=== PATIENT | female | born 1985 | race Caucasian/White ===

== ENCOUNTER 2022-06-27 09:49 | Outpatient (CLI) | payer BC, SELFPAY ==
[2022-06-27 15:26] LABS: Kit Draw Collected
== END 2022-06-27 09:50 | disposition home or self-care (01) ==
LOC: ANHGOSHLAB 09:51
PROVIDERS: PCP Family Medicine; Visit Provider Nurse Practitioner
DX: M25.50 Pain in unspecified joint (principal); E55.9 Vitamin D deficiency, unspecified; E78.5 Hyperlipidemia, unspecified; R53.83 Other fatigue
CPT/HCPCS: 36415

== ENCOUNTER 2023-05-04 13:27 | Outpatient (CLI) | payer BC, SELFPAY ==
[2023-05-04 17:01] LABS: Basophils Absolute Auto 0.1 K/mm3 (0.0-0.1); Basophils Percent Auto 0.5 % (0.2-1.2); Eosinophils Absolute Auto 0.2 K/mm3 (0-0.3); Eosinophils Percent Auto 1.1 % (0-4.4); Hematocrit 37.2 % (37.0-47.0); Hemoglobin 11.7 g/dL (12.0-15.0); Immature Granulocyte Absolute 0.04 K/mm3 (0.00-0.031); Immature Granulocyte Percent A 0.3 % (0-0.5); Lymphocytes Absolute Auto 3.35 K/mm3 (0.9-3.2); Lymphocytes Percent Auto 25.2 % (18.3-44.2); Mean Corpuscular HGB Conc 31.5 g/dl (32-36); Mean Corpuscular Hemoglobin 27.7 pg (26-34); Mean Corpuscular Volume 87.9 fl (80-100); Mean Platelet Volume 12.2 fl (7.4-10.4); Monocytes Absolute Auto 0.5 K/mm3 (0.1-0.6); Monocytes Percent Auto 3.5 % (2.6-8.5); Neutrophils Absolute Auto 9.2 K/mm3 (1.3-6.7); Neutrophils Percent Auto 69.4 % (45.5-73.1); Platelet Count Result 298 k/mm3 (150-375); Red Blood Count 4.23 M/mm3 (4.2-5.4); Red Cell Distribution Width 14.5 % (11.5-14.5); White Blood Count 13.3 K/mm3 (4.5-10.0)
[2023-05-04 18:18] LABS: Rheumatoid Factor < 12.0 IU/ML (<12)
[2023-05-04 18:21] LABS: Alanine Aminotransferase 20 U/L (6-35); Albumin Level 4.2 g/dL (3.5-5.1); Alkaline Phosphatase 86 U/L (38-126); Anion Gap 9 mmol/L (8-16); Aspartate Amino Transferase 23 U/L (14-36); Bilirubin,Total 0.4 mg/dL (0.2-1.3); Blood Urea Nitrogen 9 mg/dL (7-17); Calcium 9.2 mg/dL (8.4-10.2); Carbon Dioxide 26 mmol/L (22-30); Chloride 104 mmol/L (98-107); Estimated Glomerular Filt Rate > 60; Glucose 90 mg/dL (65-110); Sodium 139 mmol/L (137-145)
== END 2023-05-04 13:28 | disposition home or self-care (01) ==
LOC: ANHGOSHLAB 13:28
PROVIDERS: PCP Family Medicine; Visit Provider Nurse Practitioner Family
DX: Z00.00 Encounter for general adult medical examination without abnormal findings (principal); M25.50 Pain in unspecified joint; I10 Essential (primary) hypertension; E53.8 Deficiency of other specified B group vitamins; Z13.29 Encounter for screening for other suspected endocrine disorder; Z13.21 Encounter for screening for nutritional disorder
CPT/HCPCS: 36415; 80053; 82306; 82607; 84443; 85025; 86430

== ENCOUNTER 2023-05-04 13:40 | Outpatient (CLI) | payer BC, SELFPAY ==
--- NOTE | ~2023-05-04 | XR_ITS ---
EXAMINATION: XR lumbar spine 2-3V DATE: 05/04/2023 13:52 INDICATION: Low back pain TECHNIQUE: Anteroposterior and lateral views of the lumbar spine, and cone-down lateral view of the l umbosacral junction were obtained. COMPARISON: None. FINDINGS: No fracture, dislocation, or subluxation. The vertebral body heights, alignment, and interv ertebral disc spaces are normal. The paravertebral soft tissues are unremarkable. An IUD is noted. IMPRESSION: 1. No acute osseous abnormality. Reviewed, dictated and finalized at location B.
== END 2023-05-04 13:41 ==
LOC: GOSHIMG 13:41
PROVIDERS: PCP Nurse Practitioner Family; Visit Provider Nurse Practitioner Family
DX: M79.662 Pain in left lower leg (principal); M54.50 Low back pain, unspecified
CPT/HCPCS: 72100

== ENCOUNTER 2023-05-23 14:54 | Outpatient (CLI) | payer BC, SELFPAY ==
--- NOTE | ~2023-05-23 | XR_ITS ---
EXAMINATION: XR abdomen/kub 1V INDICATION: Constipation, abdominal pain TECHNIQUE: Supine views of the abdomen were obtained on 2 radiographs. COMPARISON: None FINDINGS: The bowel gas pattern is normal. There are no dilated loops of bowel. The visualized lung b ases are clear. An IUD is noted. IMPRESSION: 1. No radiographic correlate for the patient's symptoms. Reviewed, dictated and finalized at location F.
== END 2023-05-23 14:55 ==
PROVIDERS: PCP Nurse Practitioner Family; Visit Provider Nurse Practitioner Family
DX: K59.00 Constipation, unspecified (principal); R10.9 Unspecified abdominal pain
CPT/HCPCS: 74018

== ENCOUNTER 2024-03-06 09:40 | Outpatient (CLI) | payer BC, SELFPAY ==
[2024-03-06 19:48] LABS: Hemoglobin 13.2 g/dL (12.0-15.0); Mean Corpuscular HGB Conc 31.4 g/dl (32-36); Mean Corpuscular Hemoglobin 28.4 pg (26-34); Mean Corpuscular Volume 90.5 fl (80-100); Mean Platelet Volume 11.9 fl (7.4-10.4); Platelet Count Result 337 k/mm3 (150-375); Red Blood Count 4.64 M/mm3 (4.2-5.4); Red Cell Distribution Width 14.6 % (11.5-14.5); White Blood Count 10.3 K/mm3 (4.5-10.0)
[2024-03-06 19:51] LABS: Alanine Aminotransferase 20 U/L (6-35); Albumin Level 4.5 g/dL (3.5-5.1); Alkaline Phosphatase 82 U/L (38-126); Anion Gap 2 mmol/L (4-12); Aspartate Amino Transferase 29 U/L (14-36); Bilirubin,Total 0.6 mg/dL (0.2-1.3); Blood Urea Nitrogen 15 mg/dL (7-17); Calcium 9.1 mg/dL (8.4-10.2); Carbon Dioxide 27 mmol/L (22-30); Chloride 100 mmol/L (98-107); Cholesterol 234 mg/dL (0-200); Estimated Glomerular Filt Rate > 60; Glucose 87 mg/dL (65-110); HDL Direct 45 mg/dL; Potassium 4.5 mmol/L (3.4-5.0); Sodium 129 mmol/L (137-145); Triglycerides 87 mg/dL (<150)
[2024-03-06 20:02] LABS: LDL Cholesterol Direct 172 mg/dL
[2024-03-06 21:22] LABS: Hemoglobin A1C 5.8 % (<5.7)
[2024-03-11 14:54] LABS: Vitamin D 1,25 (OH)2 Total 28 pg/mL (18-72); Vitamin D2 1,25 (OH)2 <8 pg/mL; Vitamin D3 1,25 (OH)2 28 pg/mL
== END 2024-03-06 09:41 | disposition home or self-care (01) ==
LOC: ANHGOSHLAB 09:41
PROVIDERS: PCP Nurse Practitioner Family; Visit Provider Nurse Practitioner Family
DX: E78.5 Hyperlipidemia, unspecified (principal); E53.8 Deficiency of other specified B group vitamins; F41.8 Other specified anxiety disorders; R53.83 Other fatigue; E55.9 Vitamin D deficiency, unspecified; Z00.00 Encounter for general adult medical examination without abnormal findings; D72.829 Elevated white blood cell count, unspecified
CPT/HCPCS: 36415; 80053; 80061; 82607; 82652; 83036; 84443; 85027

== ENCOUNTER 2024-05-23 08:30 | Outpatient (CLI) | payer BC, SELFPAY ==
[2024-05-23 17:02] LABS: Alanine Aminotransferase 24 U/L (6-35); Alkaline Phosphatase 92 U/L (38-126); Anion Gap 6 mmol/L (4-12); Aspartate Amino Transferase 52 U/L (14-36); Bilirubin,Total 0.4 mg/dL (0.2-1.3); Blood Urea Nitrogen 10 mg/dL (7-17); Calcium 8.9 mg/dL (8.4-10.2); Carbon Dioxide 29 mmol/L (22-30); Chloride 102 mmol/L (98-107); Cholesterol 143 mg/dL (0-200); Estimated Glomerular Filt Rate > 60; Glucose 82 mg/dL (65-110); HDL Direct 41 mg/dL; Potassium 4.2 mmol/L (3.4-5.0); Sodium 137 mmol/L (137-145); Triglycerides 82 mg/dL (<150)
[2024-05-23 17:23] LABS: LDL Cholesterol Direct 77 mg/dL
[2024-05-23 18:34] LABS: Folic Acid 6.4 ng/mL (2.76->20)
== END 2024-05-23 08:31 | disposition home or self-care (01) ==
LOC: ANHGOSHLAB 08:31
PROVIDERS: PCP Family Medicine; Visit Provider Nurse Practitioner Family
DX: R53.83 Other fatigue (principal); E78.5 Hyperlipidemia, unspecified
CPT/HCPCS: 36415; 80053; 80061; 82607; 82746

== ENCOUNTER 2024-06-26 10:44 | Outpatient (CLI) | payer BC, SELFPAY ==
[2024-06-26 14:34] LABS: Influenza A QL RT-PCR Negative (Negative); Influenza B QL RT-PCR Negative (Negative); RSV RNA, RT-PCR Negative (Negative); SARS-CoV-2 RNA PCR Positive (Negative)
== END 2024-06-26 10:45 | disposition home or self-care (01) ==
LOC: ANHGOSHLAB 10:45
PROVIDERS: PCP Family Medicine; Visit Provider Family Medicine
DX: J06.9 Acute upper respiratory infection, unspecified (principal); J02.9 Acute pharyngitis, unspecified; Z20.822 Contact with and (suspected) exposure to COVID-19
CPT/HCPCS: 87637

== ENCOUNTER 2025-01-15 09:06 | Outpatient (CLI) | payer BC, SELFPAY ==
--- NOTE | 2025-01-29 14:21 | P.SLEEP_ITS ---
Sleep Study - Home Unattended Date of Study: 01/15/25 Ordering Provider: Terri Quiros NP Interpreting Provider: Abigail Han MD Home Sleep Study Type: Watch PAT Height: 1.55 m Weight: 106.594 kg Body Mass Index: 44.4 Neck Circumference (inches): 17.5 [place]: 16 Reason for Sleep Study Hypersomnolence Sleep History Brittany Landry is a 39-year-old woman with difficulty falling asleep and staying asleep. She does not say that she snores at night, however she chokes and gasps when she sleeps on her back, has morning headaches, and a sore throat in the am. She has nocturnal heartburn. She does not wake to urinate. She is tired in the day, does not wake up feeling refreshed. She has drowsy driving. She has the urge to move her legs at night, this is worse when she tries to rest, and improves with activities. She clenches her jaws and grinds her teeth at night. She has a restless feeling in her legs in the evenings. She does not have muscle weakness with strong emotion, does not have vivid dreams on falling asleep or upon waking. She quiros snot dream during daytime naps. Her insomnia severity score is 20, elevated, consistent with clinical insomnia. She is very dissatisfied with her sleep pattern. does not function well in the day due to poor night time sleep, and she worries significantly about her sleep. Normal bedtime is 10:00 p.m., falling asleep within an hour, spending 8 hours in bed, only 5 and a half hours asleep. She keeps a similar schedule on days off, bedtime is 11:00 p.m., taking 2 hours to fall asleep, spending 10 hours in bed, 7 hours asleep. She does not feel rested in the day time. Habits: tobacco: none Caffeine: 1-2 cups daily Alcohol: no Recreational substances: no PMFSH Past Medical History Medical History Anxiety Mildly obese Muscle spasm Prediabetes Vitamin B12 deficiency Seasonal allergic rhinitis Lumbar pain Muscle tension pain Hyperlipidemia Vitamin D deficiency Depression with anxiety Surgical History Surgical History History of 2006 and 2010 Family History Family History Mother Family history of glaucoma Hypertension Family history of type 2 diabetes mellitus Father Hypertension Family history of type 2 diabetes mellitus Sibling Bile duct cancer Pancreatic cancer Social History Social History Social History: Caffeine- coffee daily Smoking status: Never smoker Second hand tobacco smoke exposure: No Alcohol intake: never Substance use: never Substance use type: does not use Lack of Transportation: No Lack of Food: Never True Current Housing: I Have Housing Concerned About Future Housing: No Difficulty Paying Gas/Electric Bills: No Difficulty Paying for Meds: No Currently Unemployed: No Education: High School Diploma/GED Difficulty w/ Childcare or Family Care: No Living arrangements: with family Additional living arrangements comments: and Children Occupation/Education: occupation 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 Gender identity (if verbalized by the patient): Female Sexual Orientation (if Verbalized by the Patient): Straight or Heterosexual Agree to blood products: Yes Medications Home Medications ?Medication ?Instructions ?Recorded ?Confirmed ?Type escitalopram oxalate 10 mg tablet 10 mg PO DAILY #90 tabs 04/17/24 11/24/24 Rx loratadine 10 mg tablet (Claritin) 10 mg PO DAILY PRN 04/17/24 11/24/24 History cyanocobalamin (vitamin B-12) 1,000 mcg sublingual DAILY 06/26/24 11/24/24 History 1,000 mcg sublingual lozenge simvastatin 10 mg tablet 10 mg PO DAILY #90 tabs 10/16/24 11/24/24 Rx coQ10 (ubiquinol) 100 mg capsule 400 mg PO DAILY 10/30/24 11/24/24 History (Qunol Javi CoQ10) Sleep Procedure The sleep study was completed using SungevityT a technically adequate device with seven channels: peripheral arterial tone, actigraphy, body position, snore, respiratory movement, pulse oximetry, sleep staging, and heart rate. Prior to using the device, the patient received verbal and written instructions for its application and was provided with the [employer] phone number for additional telephonic instruction with 24-hour availability of qualified personnel to answer questions. Sleep Architecture The total recording time is 7 hours 44 minutes. The total sleep time is 6 hours 9 minutes. Sleep latency is 21 minutes. REM latency is 226 minutes. The patient had 30 episodes of waking. Sleep architecture shows 21.4% deep sleep, 58 point% light sleep, and 20.2 % stage REM. The patient spent 56 minutes, 15.2%of total sleep time in the supine position. Respiratory Analysis The overall AHI is 46.3 using a 3% criteria. The apnea-hypopnea index using the 4% criteria is 27.8, moderately severe. The central AHI is 1.5. The REM AHI was 77.3. The supine apnea-hypopnea index is 76.9, nonsupine apnea-hypopnea index 40.8. There was no evidence of Olvin-Hung respirations. Oximetry Data The oxygen desaturation index is 27.8. The mean saturation is 94%, the lowest saturation is 76% %, and the patient spent 13.8 minutes, 3.7% of the sleep time, below 88%. Snoring Profile Snoring was present, average intensity 54 dB. The patient snored above 45 dB for 309.6 minutes, 83.9% of the sleep time. Cardiac Profile The average pulse is 92 beats per minute, the lowest pulse is 62 beats per minute, and the highest pulse is 114 beats per minute. Cardiac rhythm analysis in sleep does not detect atrial fibrillation. Assessment and Plan Assessment and Plan (1) Obstructive sleep apnea: Code(s): G47.33 - Obstructive sleep apnea (adult) (pediatric) Status: Acute Assessment and Plan: This home sleep test using WatchPat on 01/15/2025 shows overall moderate obstructive sleep apnea, the apnea-hypopnea index using a 4% criteria is 25.4, with loud snoring for most of the night and desaturation to 76% with 13.8 minutes spent below 88%. She has a positional component, the supine apnea- hypopnea index is 76.9 nonsupine is 40.8. She spent most of the night in the left lateral position. This patient is recommended to have a full night CPAP titration in the sleep lab with a sleep aid available, if needed, to get to sleep and stay asleep. Consider Ambien 5-10 mg or Lunesta 2-3 mg. She should not nap on the day of the study. BMI is 44.4. Weight management is advised. Clinical data suggests that weight loss of 10% can reduce the severity of respiratory events and snoring and improve AHI by as much as 25%. (2) Restless legs syndrome: Code(s): G25.81 - Restless legs syndrome Status: Acute Assessment and Plan: This is strongly suggested by her history. Restless legs syndrome is a clinical condition and is not diagnosed based on data from this home sleep test. Ferritin level is indicated to exclude iron deficiency anemia as a contributing factor. Ferritin should be 75 ng/mL or greater. If ferritin is below this, iron supplementation should be given to achieve ferritin of 75 ng/mL. There are nonpharmacologic methods to treat limb movements including daily exercise, stretching calf muscles before bed, avoiding excessive amounts of caffeine and alcohol, vitamin B supplementation, magnesium lotion massaged into legs before bed, and use of a weighted blanket. Pharmacologic therapy is very effective for restless legs syndrome and limb movements during sleep and may include [id number] voltage-gated calcium channel ligands such as gabapentin which is preferable to dopaminergic agents which can have augmentation. Data The data obtained during this sleep study is adequate for interpretation. Certification This sleep study has been reviewed by a board certified sleep medicine physician.
[2025-02-02 19:52] VITALS: BMI 44.4
== END 2025-01-16 09:45 | disposition home or self-care (01) ==
LOC: ANHCSM 09:10
PROVIDERS: PCP Family Medicine; Visit Provider Nurse Practitioner Family
DX: G47.10 Hypersomnia, unspecified (principal); R53.83 Other fatigue; G47.33 Obstructive sleep apnea (adult) (pediatric); G25.81 Restless legs syndrome
CPT/HCPCS: 95800

== ENCOUNTER 2025-03-05 08:49 | Outpatient (CLI) | payer BC, SELFPAY ==
--- OUTSIDE RECORDS SUMMARY | 2025-03-05 08:54 | XMS_ITS | Patient Health Record ---
Author Organization [facility] Address [address] [place], [place] [id number] Care Team Providers Care Non Destructive Testing Inspector Name Role Phone MELI ART Unavailable [phone] Elbert Melara Unavailable Unavaila ble Allergies No Known Allergies Reason For Referral No Information Medications Medication SIG (Take, Route, Fr equency, Duration) Notes Start Date End Date Status Escitalopram Oxalate Active Rosuvastatin Calcium Active Vital Signs Height-cm 154.94 cm 03/05/2025 Weight-kg 117.48 kg 03/05/2025 Height 61.00 in 03/05/2025 Weight 259 lbs 03/05/2025 BMI 48.93 kg/m2 03/05/2025 Encounters Encounter Location Date Provider Diagnosis [facility] [place] [address] [place], [place] [id number] 03/05/2025 ART GARRISON Assessments Encounter Date Diagnosis (ICD Code) Assessment Notes Treatment Notes Treatment Clinical Notes Section Notes 03/05/2025 Other Following skin prep, a total of 3 ccs of a 1-1-1 mix of 0.5% marcaine plain, Kenalog, and dexamethasone sodium phosphate was injected into the patients bilateral plantar fascia. Orthotic recommendation: Custom orthotics were recommended. The patient was given heel stretching exercises. A night splint was fitted and dispensed. The patient was instructed on its use. Plan Of Treatment Next Appt Details Provider Name:ART SALINAS, 03/19/2025 02:40:00 PM, [address], [place], [place], [id number], Insurance Providers Payer Name Payer Address Payer Phone Subscriber Number Group Number Insured Name Patient Relationship to Insured Coverage Start Date Coverage End Date [facility] ([facility]) ATTN CLAIMS [address] [place] [address] [id number] DAIANA JACOBS Spouse - patient is the spouse of the insured Medical (General) History Medical History History ICD Code Leg/Feet cramps Surgical History Surgery Date(Month/Year) section
--- OUTSIDE RECORDS SUMMARY | 2025-03-05 08:54 | XMS_ITS | Clinical Summary ---
Author Organization [facility] Address [address] [place] [id number] Care Team Providers Care Cafe Helper Name Role Phone Elbert Villanueva MD Primary Care Provider Allergies No known active allergies Medications buPROPion XL (WELLBUTRIN XL) 150 MG 24 hr tablet Take 1 tablet (150 mg total) by mouth daily. Active Immunizations Immunization Administration Dates Next Due PFIZER COVID-19 (ORIGINAL FO RMULATION, PURPLE CAP) mRNA, LNP-S, PF, 30 MCG/0.3 ML DOSE 09/15/2020,08/25/2020 Family History Medical History Relation Comments Breast Cancer Maternal Grandmother Breast Cancer Paternal Grandmother Relation Status Comments Maternal Grandmother Paternal Grandmother Social History Tobacco Use Types Packs/Day Years Used Date Smoking Tobacco: Never Smokeless Tobacco: Never Tobacco Cessation:Counseling Given: Not Answered Alcohol Use Standard Drinks/Week Comments Never 0 (1 standard drink = 0.6 oz pur e alcohol) Comments Unknown Sex and Gender Information Value Date Recorded Sex Assigned at Not on file Legal Sex Female 8:16 PM EDGE DRUMMER Gender Identity Not on file Sexual Orientation Not on file Last Filed Vital Signs Vital Sign Reading Time Taken Comments Blood Pressure 143/99 11/01/2022 7:55 PM CDT Pulse 89 11/01/2022 7:55 PM CDT Temperature 36.7 C (98 F) 11/01/2022 7:55 PM CDT Respiratory Rate 18 11/01/2022 7:55 PM CDT Oxygen Saturation 100% 11/01/2022 7:55 PM CDT Inhaled Oxygen Concentration - - Weight 104.3 kg (230 lb) 11/01/2022 6:52 PM CDT Height 154.9 cm (5' 1) 11/01/2022 6:52 PM CDT Body Mass Index 43.46 11/01/2022 6:52 PM CDT Plan of Treatment Health Maintenance Due Date Last Done Comments Cervical Cancer Screening Pa p Smear (Age 30 to 64) Every 3 Years 1983 Annual Physical 1986 Hepatitis C 2001 DTaP, Tdap and Td Vaccines ( 1 - Tdap) 2002 Hepatitis B Vaccines (1 of 3 - 19+ 3-dose series) 2002 HPV Vaccines (1 - 3-dose SCD M series) 2010 Cervical Cancer Screening Pa p with HPV Testing (Age 30 to 64) Every 5 Years 2013 Cervical Cancer Screening wi th HPV 2013 COVID-19 Vaccine (2023-2 5 season) 2024 09/15/2020, 08/25/2020 Mammogram Screening 09/29/2026 09/29/2024, 09/17/2023 Meningococcal B Vaccine Aged Out No l onger eligible based on patient's age to complete this topic Meningococcal Vaccine Aged Out No iávn chikis eligible based on patient's age to complete this topic Pneumococcal Vaccine: Pediatrics (0 to 5 Years) and At-Risk Patients (6 to 49 Years) Aged Out No longer eligible b ased on patient's age to complete this topic RSV Immunizations Under 20 Months Aged Out No longer eligible b ased on patient's age to complete this topic Procedures Procedure Name Priority Date/Time Associated Diagnosis Comments MG SCREENING W YEIMI CROW DIGI Routine 09/29/2024 11:44 AM EDGE DRUMMER Visit for screening mammogram from Last 3 Months or Most Recently Relevant to Health Maintenance Results * MG SCREENING W YEIMI CROW DIGI (09/29/2024 11:44 AM EDGE DRUMMER) Anatomical Region Laterality Modality Breast Bilateral Mammography 09/29/2024 4:12 PM EDGE DRUMMER Impressions 09/29/2024 4:15 PM EDGE DRUMMER ===== IMPRESSION: ===== 1. Stable mammographic appearance with no new findings to suggest malignancy in either breast. Assessment: ACR BI-RADS 1 - NEGATIVE Recommendation: 1:Routine Screening Bilateral Comments: Ordered By: ELBERT VILLANUEVA Interpreted By: Melina Love, 09/29/2024 4:12 PM Narrative 09/29/2024 4:15 PM EDGE DRUMMER [facility] [address] [place] [address] EXAMINATION: Digital bilateral screening mammogram with 3-D tomosynthesis EXAM DATE/TIME: 09/29/2024 10:53 AM REASON FOR EXAM: Screening Breast carcinoma in maternal grandmother at age 60 and paternal grandmother at age 80 COMPARISON: 09/17/2023 Technique: Digital screening mammography of both breasts was performed in addition to 3-D Tomosynthesis technique. This study was read with the assistance of a computer-aided detection system. Tissue density: The breasts are almost entirely fatty. Findings: There is no new focal asymmetry, dominant mass lesion, area of skin thickening, or cluster of suspicious appearing calcifications in either breast to suggest malignancy. Elbert Villanueva MD MAMMO Final Result from Last 3 Months or Most Recently Relevant to Health Maintenance Insurance [facility] Care Teams Cafe Helper Relationship Specialty Start Date End Date Elbert Villanueva MD [id number] [facility] [address] [place] [address] PCP - General FAMILY PRACTICE 11/01/22
[2025-03-05 13:02] LABS: Hematocrit 37.5 % (37.0-47.0); Hemoglobin 11.6 g/dL (12.0-15.0); Immature Granulocyte Percent A 0.5 % (0-0.5); Lymphocytes Absolute Auto 2.83 K/mm3 (0.9-3.2); Mean Corpuscular HGB Conc 30.9 g/dl (32-36); Mean Corpuscular Hemoglobin 27.4 pg (26-34); Mean Corpuscular Volume 88.4 fl (80-100); Nucleated Red Blood Cells Absolute Auto 0.000 K/mm3 (0.0-0.012); Nucleated Red Blood Cells Perc 0.0 % (0.0-0.2); Platelet Count Result 212 k/mm3 (150-375); Red Blood Count 4.24 M/mm3 (4.2-5.4); White Blood Count 10.4 K/mm3 (4.5-10.0)
[2025-03-05 13:15] LABS: Alanine Aminotransferase 23 U/L (6-35); Albumin Level 4.0 g/dL (3.5-5.1); Alkaline Phosphatase 82 U/L (38-126); Anion Gap 9 mmol/L (4-12); Aspartate Amino Transferase 62 U/L (14-36); Bilirubin,Total 0.2 mg/dL (0.2-1.3); Blood Urea Nitrogen 11 mg/dL (7-17); Calcium 8.7 mg/dL (8.4-10.2); Carbon Dioxide 24 mmol/L (22-30); Chloride 104 mmol/L (98-107); Cholesterol 168 mg/dL (0-200); Estimated Glomerular Filt Rate > 60; Glucose 86 mg/dL (65-110); HDL Direct 32 mg/dL; Potassium 4.1 mmol/L (3.4-5.0); Sodium 137 mmol/L (137-145); Total Protein 8.2 g/dL (6.3-8.2); Triglycerides 88 mg/dL (<150)
[2025-03-05 13:30] LABS: Free T4 Free Thyroxine 0.99 ng/dL (0.78-2.19)
[2025-03-05 13:34] LABS: Hemoglobin A1C 6.1 % (<5.7)
[2025-03-05 13:50] LABS: Thyroid Stimulating Hormone 2.370 uIU/mL (0.465-4.680)
[2025-03-05 14:09] LABS: Vitamin B12 265.0 pg/mL (239-931)
== END 2025-03-05 08:50 | disposition home or self-care (01) ==
LOC: ANHGOSHLAB 08:50
PROVIDERS: PCP Family Medicine; Visit Provider Nurse Practitioner Family
DX: E78.5 Hyperlipidemia, unspecified (principal); E55.9 Vitamin D deficiency, unspecified; R73.03 Prediabetes; E66.01 Morbid (severe) obesity due to excess calories; E53.8 Deficiency of other specified B group vitamins; G25.81 Restless legs syndrome
CPT/HCPCS: 36415; 80053; 80061; 82306; 82607; 83036; 84439; 84443; 85025

== ENCOUNTER 2025-03-18 07:43 | Outpatient (CLI) | payer BC, SELFPAY ==
--- OUTSIDE RECORDS SUMMARY | 2025-03-18 07:46 | XMS_ITS | Patient Health Record ---
Author Organization [facility] Address [address] [place], [place] [id number] Care Team Providers Care Nursing Home Admissions Director Name Role Phone MELI ART Unavailable [phone] Elbert Melara Unavailable Unavaila ble Allergies No [...] Location Date Provider Diagnosis [facility] [place] [address] [place], [place] [id number] 03/05/2025 ART GARRISON Assessments Encounter Date Diagnosis [...] 02:40:00 PM, [address], [place], [place], [id number], Insurance Providers Payer Name Payer Address Payer Phone Subscriber Number Group Number Insured Name Patient Relationship to Insured Coverage Start Date Coverage End Date [facility] ([facility]) ATTN CLAIMS [address] [place] [address] [id number] DAIANA JACOBS Spouse - patient is the spouse of the insured Medical (General) History Medical History History ICD Code Leg/Feet cramps Surgical History Surgery Date(Month/Year) section
--- OUTSIDE RECORDS SUMMARY | 2025-03-18 07:46 | XMS_ITS ---
Author Organization [facility] Address [address] [place], [place] [id number] Care Team Providers Care Floor Coverings Salesperson Name Role Phone ART BRYANT Unavailable [phone] Marella, Srimannarayana Unavailable Unavaila ble Allergies No Known Allergies REASON FOR VISIT Heel spur Medications Medication SIG (Take, Route, Fr equency, Duration) Notes Start Date End Date Status Escitalopram Oxalate Active Rosuvastatin Calcium Active Vital Signs Height 61.00 in 03/05/2025 Weight 259 lbs 03/05/2025 BMI 48.93 kg/m2 03/05/2025 Height-cm 154.94 cm 03/05/2025 Weight-kg 117.48 kg 03/05/2025 Encounters Encounter Location Date Provider Diagnosis [facility] [place] [address] [place], [place] [id number] 03/05/2025 ART BRYANT Assessments Encounter Date Diagnosis (ICD Code) Assessment [...] instructed on its use. Plan Of Treatment Treatment Notes Assessment Notes Other Following skin prep, a total of 3 ccs of a 1-1-1 mix of 0.5% marcaine plain, Kenalog, and dexamethasone sodium phosphate was injected into the patients bilateral plantar fascia. Orthotic recommendation: Custom orthotics were recommended. The patient was given heel stretching exercises. A night splint was fitted and dispensed. The patient was instructed on its use. Next Appt Details Provider Name:ART Olivier MARLEY SALINAS, 03/19/2025 02:40:00 PM, [address], [facility], [place], [place], [phone], Progress Notes * JAN JACOBSDOB:1985 (39 yo F)Acc No.[id number]:03/05/2025 Progress Notes Patient: JAN COPELAND Provider: Marii Bryant DPM :1985 A ge:39 Y S ex:Female Date:03/05/2025 Address:[address] [place] [address] Subjective: * Chief Complaints: * 1 . Heel spur. * HPI: H PI: New Complaint P finn was last seen in our practice over three years ago. Patient complains of an issue to bilateral heels. She states she has pain in the bottom of both heels. Duration of problem is 3 years. She states she has had two rounds of injections and finished physical therapy. She states they helped some, but the pain never went away. MA: sea.? * Medical History: L eg/Feet cramps. * Surgical History: c esarean section . * Family History: F ather: PRN - Father: :: Diabetes,,known absent , :: Kidney disease,,known absent , :: Hypertension,,known absent . H usband: SPS - : :: Diabetes,,known absent . * Social History: M igrated Social History: M igrated Social History: History of tobacco use : , Smoking Status : Never used tobacco. * Medications: T aking Rosuvastatin Calcium , Taking Escitalopram Oxalate , Medication List reviewed and reconciled with the patient * Allergies: N .K.D.A. Objective: * Vitals: S hoe Size: 7.5, Wt:259lbs, Wt-k.48 kg, Ht: 61.00 in, Ht-cm: 154.94 cm, BMI:48.93Index, Body Surface Area: 2.25. * Examination: C onstitutional: Constitutional T he patient is awake, alert, well developed, well groomed and well nourished. . D ermatologic: Skin findings: S kin is warm, dry, supple with no breaks in the skin. . Nail pathology: N ails 1-5 bilateral are normal in appearance and thickness. No discoloration. . Ulcer: T here is no evidence of ulceration noted at this time . Hyperkeratotic Skin Lesion T here is no evidence of hyperkeratosis . M usculoskeletal: Muscle Strength M uscle strength is 5/5 in regards to dorsiflexion, plantarflexion, inversion, and eversion in bilateral lower extremities. . Foot Structure T he foot structure is noted to be normal bilaterally . Pain on palpation m edial band of the dilshad plantar fascia near its attachment to the calcaneus . Gait T here is normal gait noted . N eurologic: Muscle power: 5 /5 bilaterally . Gross sensation G ross sensation is intact to light touch. . V ascular: Dorsalis pedis pulse: 2 /4 bilateral . Posterior tibial pulse: 2 /4 bilaterally . Capillary refill: l ess than 3 seconds bilaterally . Temperature gradient: w ithin normal limits . ? X -Ray: LEFT FOOT X -rays reveal no sign of fracture, dislocation or osseous lesions. There is a plantar spur noted on the calcaneous. . RIGHT FOOT X -rays reveal no sign of fracture, dislocation or osseous lesions. There is a plantar spur noted on the calcaneous. . Assessment: Plan: * Treatment: * Billing Information: * Visit Code: * Procedure Codes: * Electronic signature of ART BRYANT DPM on 03/18/2025 at 07:45 AM CDT Sign off status: Pending * Provider: Marii Bryant DPM Date: 03/05/2025 Generated for Ruy yang/Corie/Pilar on: 03/18/2025 07:45 AM CDT History and Physical Notes * HPI (History of Present Illness) Category Sub-Category Detail Notes Category Not es HPI New Complaint Patient was last seen in our practice over three years ago. Patient complains of an issue to bilateral heels. She states she has pain in the bottom of both heels. Duration of problem is 3 years. She states she has had two rounds of injections and finished physical therapy. She states they helped some, but the pain never went away. MA: nadiya Examination Category Sub-Category Detail Notes Category Not es X-Ray LEFT FOOT X-rays reveal no sign of fracture, dislocation or osseous lesions. There is a plantar spur noted on the calcaneous. RIGHT FOOT X-rays reveal no sig n of fracture, dislocation or osseous lesions. There is a plantar spur noted on the calcaneous. Constitutional Constitutional The patient is a wake, alert, well developed, well groomed and well nourished. Dermatologic Skin findings: Skin is warm, dr y, supple with no breaks in the skin. Nail pathology: Nails 1-5 bilateral are normal in appearance and thickness. No discoloration. Ulcer: There is no evidence of ulceration noted at this time Hyperkeratotic Skin Lesion There is no e vidence of hyperkeratosis Musculoskeletal Muscle Strength Muscle strength is 5/5 in regards to dorsiflexion, plantarflexion, inversion, and eversion in bilateral lower extremities. Pain on palpation medial band of the b il plantar fascia near its attachment to the calcaneus Foot Structure The foot structure i s noted to be normal bilaterally Gait There is normal gait noted Neurologic Muscle power: 5/5 bilaterally Gross sensation Gross sensation is i ntact to light touch. Vascular Dorsalis pedis pulse: 2/4 bilateral Posterior tibial pulse: 2/4 bilaterally Capillary refill: less than 3 seconds bilaterally Temperature gradient: within normal limi ts
--- NOTE | 2025-04-10 21:46 | P.SLEEP_ITS ---
Sleep Study Date of Study: 03/18/25 Ordering Provider: Terri Quiros NP Interpreting Physician: Abigail Han MD Sleep Study Type: CPAP Titration Height: 1.55 m Weight: 115.666 kg Body Mass Index: 48.2 Neck Circumference (inches): 17.5 [place]: 16 Reason for Sleep Study Hypersomnolence * 01/15/2025 home sleep test showing moderate obstructive sleep apnea, the apnea- hypopnea index 24.5 with loud snoring and desaturation to 76%, 13.8 minute spent below 88%. She returns at this time for a full night CPAP titration. She had increased events in the supine position, the supine index is 76.9. Sleep History The history is taken from her 01/15/2025 sleep questionnaire. Brittany Landry is a 40-year-old woman with difficulty falling asleep and staying asleep. She does not say that she snores at night, however she chokes and gasps when she sleeps on her back, has morning headaches, and a sore throat in the am. She has nocturnal heartburn. She does not wake to urinate. She is tired in the day, does not wake up feeling refreshed. She has drowsy driving. She has the urge to move her legs at night, this is worse when she tries to rest, and improves with activities. She clenches her jaws and grinds her teeth at night. She has a r estless feeling in her legs in the evenings. She does not have muscle weakness with strong emotion, does not have vivid dreams on falling asleep or upon waking. She quiros snot dream during daytime naps. Her insomnia severity score is 20, elevated, consistent with clinical insomnia. She is very dissatisfied with her sleep pattern. does not function well in the day due to poor night time sleep, and she worries significantly about her sleep. Normal bedtime is 10:00 p.m., falling asleep within an hour, spending 8 hours in bed, only 5 and a half hours asleep. She keeps a similar schedule on days off, bedtime is 11:00 p.m., taking 2 hours to fall asleep, spending 10 hours in bed, 7 hours asleep. She does not feel rested in the day time. Habits: tobacco: none Caffeine: 1-2 cups daily Alcohol: no Recreational substances: no PMFSH Past Medical History Medical History Obstructive sleep apnea Anxiety Mildly obese Muscle spasm Prediabetes Vitamin B12 deficiency Seasonal allergic rhinitis Lumbar pain Muscle tension pain Hyperlipidemia Vitamin D deficiency Depression with anxiety Surgical History Surgical History History of 2006 and 2010 Family History Family History Mother Family history of glaucoma Hypertension Family history of type 2 diabetes mellitus Father Hypertension Family history of type 2 diabetes mellitus Sibling Bile duct cancer Pancreatic cancer Social History Social History Social History: Caffeine- coffee daily Smoking status: Never smoker Second hand tobacco smoke exposure: No Alcohol intake: never Substance use: never Substance use type: does not use Lack of Transportation: No Lack of Food: Never True Current Housing: I Have Housing Concerned About Future Housing: No Difficulty Paying Gas/Electric Bills: No Difficulty Paying for Meds: No Currently Unemployed: No Education: High School Diploma/GED Difficulty w/ Childcare or Family Care: No Living arrangements: with family Additional living arrangements comments: and Children Occupation/Education: occupation 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 Gender identity (if verbalized by the patient): Female Sexual Orientation (if Verbalized by the Patient): Straight or Heterosexual Agree to blood products: Yes Medications Home Medications ?Medication ?Instructions ?Recorded ?Confirmed ?Type escitalopram oxalate 10 mg tablet 10 mg PO DAILY #90 t abs 04/17/24 11/24/24 Rx loratadine 10 mg tablet (Claritin) 10 mg PO DAILY PRN 04/17/24 11/24/24 History cyanocobalamin (vitamin B-12) 1,000 mcg sublingual TOMA LY 06/26/24 11/24/24 History 1,000 mcg sublingual lozenge simvastatin 10 mg tablet 10 mg PO DAILY #90 tabs 02/0411/24/24 Rx coQ10 (ubiquinol) 100 mg capsule 400 mg PO DAILY 10/3011/24/24 History (Qunol Javi CoQ10) semaglutide (weight loss) 0.25 0.25 mg (0.5 mL) subcut WEEKLY #2 02/09/25 Rx mg/0.5 mL subcutaneous pen mL injector (Alicia) zolpidem 10 mg tablet 10 mg PO QHS PRN sleep #1 ta blet 02/09/25 Rx cholecalciferol (vitamin D3) 50 50 mcg PO DAILY #90 ca ps 03/05/25 Rx mcg (2,000 unit) capsule Sleep Procedure A full CPAP polysomnogram using the [employer] multi-channel system recorded the standard physiologic parameters including EEG, EOG, submentalis EMG, anterior tibialis EMG, EKG, body position, nasal and oral airflow using nasal pressure sensor and thermistor. Respiratory parameters of chest and abdominal movements were recorded with Respiratory Inductance Plethysmography belts. Oxygen saturation was recorded by pulse oximetry. Video monitoring was also performed. Sleep stages, periodic limb movements, and EEG arousals were scored in 30 second epochs according to the criteria of the AASM Scoring Manual. The Apnea-Hypopnea Index was calculated using CMS guidelines for definition of hypopnea while scoring respiratory events. She self administered zolpidem 10 mg at the start of the study. The patient was started on CPAP using a small ResMed AirTouch F20 FFM and heated humidity, Initial pressure was CPAP 6 with 2 of EPR, the patient could not tolerate 5 cm water pressure. She was gradually titrated to CPAP 8, CPAP 9, CPAP 10, 11, 12, 13, 15, and 16 cm was the highest pressure. She had increasing centrals after CPAP reached 10 cm. These trended upward with higher pressure. At CPAP 12 cm with 2 EPR, the patient spent 41 minutes in bed, 1 minute awake, 34.5 minutes in non-REM and 5.5 minutes in REM. The residual apnea-hypopnea index was 4.5. The lowest saturation was 89%. This was a significant improvement over baseline. She had REM in the right lateral position. She had treatment emergent central apneas at pressures above 11 cm. Sleep Architecture The total recording time was 434.9 minutes.? The total sleep time was 391.0 minutes. Sleep latency was 29.0 minutes. REM latency was 147.5 minutes. Sleep efficiency was 89.9%. The patient had 16 awakenings for an awakening index of 2.5. Wake after Sleep Onset time was 14.5 minutes. The patient spent 3.5 minutes, 0.9% of total sleep time in Stage N1. The patient spent 158.0 minutes, 40.4% in Stage N2. The patient spent 102.0 minutes, 26.1% in Stage N3. The patient spent 127.5 minutes, 32.6% in Stage REM. Respiratory Analysis The patient had 34 hypopneas, 4 obstructive apneas, 4 mixed apneas, and 33 central apneas for an overall Apnea Hypopnea Index of 11.5 events per hour. The REM Apnea Hypopnea Index was 13.2. The NREM Apnea Hypopnea Index was 10.7. The patient had a Central Apnea Hypopnea Index of 5.1. There were no Respiratory Effort Related Arousals.The Respiratory Disturbance Index is 15.3 events per hour. There was no evidence of Olvin-Hung Respirations. Arousals There were 61 total arousals for an arousal index of 9.4. There were 26 spontaneous arousals for an index of 4.0. ?There were 19 arousals due to respiratory events for an index of 2.9. There were 5 arousals due to periodic limb movements for an index of 0.8.? There were 7 arousals due to isolated limb movements for an index of 1.1. Periodic Limb Movements The patient had 33 isolated limb movements with an index of 5.1. The patient had 80 periodic limb movements with index of 12.3. Patient had a total of 113 limb movements with a total limb movement index of 17.3. Oximetry Data The patient had an average oxygen saturation of 92.7% in sleep with a minimum oxygen saturation of 84% and a maximum oxygen saturation of 98%. The patient had 55 oxygen desaturations that were 4% or greater resulting in an Oxygen Desaturation Index of 8.4.? The patient spent 1.6 minutes, 0.4% of total sleep time with an oxygen saturation below 88%. Snoring Profile Snoring was moderate to loud, and this was eliminated during the titration. Cardiac Profile The EKG showed normal sinus rhythm. The patient had an average pulse rate of 77.9 bpm with a minimum pulse rate of 59 bpm and a maximum pulse rate of 97 bpm. ?No arrhythmias noted. EEG Profile Unremarkable, no evidence of seizures. Assessment and Plan Assessment and Plan (1) Obstructive sleep apnea: Code(s): G47.33 - Obstructive sleep apnea (adult) (pediatric) Status: Acute Assessment and Plan: This full night CPAP titration on 03/18/2025 shows acceptable pressure of CPAP 12 cm with 2 cm EPR using a small ResMed AirTouch F20 fullface mask with heated humidity. At CPAP 12 cm with 2 EPR, the patient spent 41 minutes in bed, 1 minute awake, 34.5 minutes in non-REM and 5.5 minutes in REM. The residual apnea-hypopnea index was 4.5. The lowest saturation was 89%. The patient should be prescribed this ResMed equipment as well as tubing, filters and reservoir. This should be used with all episodes of sleep. Compliance should be reviewed within 31-90 days of starting therapy for usage greater than 4 hours per night greater than 70% of the nights. The patient should be asked about symptoms such as excessive daytime sleepiness, quality of sleep, decreased nocturia, increased mental functioning such as memory, mood, and concentration. BMI is 48. Weight management is advised. Clinical data suggests that weight loss of 10% can reduce the severity of respiratory events and snoring and improve AHI by as much as 25%. She has a history that is suggestive of restless legs syndrome, and a ferritin level has been ordered. She did not have significant limb movement arousals on this test. Data The data obtained during this sleep study is adequate for interpretation. Certification This sleep study has been reviewed by a board certified sleep medicine physician.
[2025-04-10 21:49] VITALS: BMI 48.2
== END 2025-03-19 06:39 | disposition home or self-care (01) ==
LOC: ANHCSM 07:43
PROVIDERS: PCP Family Medicine; Visit Provider Nurse Practitioner Family
DX: G47.33 Obstructive sleep apnea (adult) (pediatric) (principal)
CPT/HCPCS: 95811